=== PATIENT | female | born 1995 | race Two or more races ===

== ENCOUNTER 2019-01-21 01:35 | Emergency (ER) | payer OTHER ==
[~2019-01-21] VITALS: Ht 160 cm; Wt 72.6 kg
== END 2019-01-21 04:42 | disposition home or self-care (01) ==
LOC: ER 01:35
DX: K52.89 Other specified noninfective gastroenteritis and colitis (principal)

== ENCOUNTER 2020-02-02 20:47 | Emergency (ER) | payer OTHER ==
[~2020-02-02] VITALS: Ht 157.5 cm; Wt 72.6 kg
== END 2020-02-02 22:10 | disposition home or self-care (01) ==
LOC: ER 20:47
DX: B37.3 Candidiasis of vulva and vagina (principal)

== ENCOUNTER 2020-09-15 12:58 | Emergency (ER) | payer OTHER ==
[~2020-09-15] VITALS: Ht 157.5 cm; Wt 74.8 kg
== END 2020-09-15 15:39 | disposition home or self-care (01) ==
LOC: ER 12:58
DX: R10.30 Lower abdominal pain, unspecified (principal)

== ENCOUNTER 2021-03-20 18:42 | Emergency (ER) | payer OTHER ==
[~2021-03-20] VITALS: Ht 160 cm; Wt 82.6 kg
[2021-03-20] MEDS ORDERED: PRENATABS RX T1 EACH PO (18:49)
[2021-03-20] MEDS ORDERED: CEFADROXIL500 MG PO (22:46)
== END 2021-03-21 00:19 | disposition home or self-care (01) ==
LOC: ER 18:42
DX: O23.41 Unspecified infection of urinary tract in pregnancy, first trimester (principal); N39.0 Urinary tract infection, site not specified; Z3A.09 9 weeks gestation of pregnancy; A49.3 Mycoplasma infection, unspecified site; Z91.013 Allergy to seafood

== ENCOUNTER 2021-04-08 14:39 | Emergency (ER) | payer OTHER ==
[~2021-04-08] VITALS: Ht 160 cm; Wt 81.6 kg
[~2021-04-08 14:39] MED LIST: CEFADROXIL500 MG PO; PRENATABS RX T1 EACH PO
== END 2021-04-08 18:30 | disposition home or self-care (01) ==
LOC: ER 14:39
DX: O03.1 Delayed or excessive hemorrhage following incomplete spontaneous abortion (principal); Z91.013 Allergy to seafood

== ENCOUNTER 2021-06-24 15:35 | Emergency (ER) | payer OTHER ==
[~2021-06-24] VITALS: Ht 160 cm; Wt 81.6 kg
[2021-06-24] MEDS ORDERED: ZITHROMAX500 MG PO (20:17)
[2021-06-24] MEDS ORDERED: MEDROLPACK PO (20:17)
== END 2021-06-24 20:33 | disposition home or self-care (01) ==
LOC: ER 15:35
DX: J02.9 Acute pharyngitis, unspecified (principal); Z20.822 Contact with and (suspected) exposure to COVID-19; Z91.013 Allergy to seafood

== ENCOUNTER 2025-01-15 19:10 | Emergency (ER) | payer OTHER ==
[~2025-01-15] VITALS: Ht 157.5 cm; Wt 72.6 kg
[~2025-01-15 19:10] MED LIST changes: +MEDROLPACK PO; +ZITHROMAX500 MG PO
[2025-01-15 20:46] VITALS: BP 117/79; O2SAT 99
[2025-01-16 00:54] LABS: BASO % 0.5 % (0.1-1.2); EOS # 0.29 (0.04-0.54); EOS % 3.0 % (0.7-7.0); LYMPH # 3.11 (1.18-3.74); LYMPH % 31.8 % (19.3-53.1); MEAN PLATELET VOLUME 10.90 fl (9.4-12.4); MONO # 0.81 (0.24-0.82); MONO % 8.3 % (4.7-12.5); NEUT # 5.48 (1.56-6.13); NEUT % 56.1 % (34.0-71.1); RED CELL DISTRIBUTION WIDTH 16.3 % (11.6-14.4)
[2025-01-16 00:56] LABS: ERYTHROCYTE SEDIMENTATION RATE 19 mm/hr (0-20)
[2025-01-16 01:15] LABS: ALT/SGPT 30 U/L (12-78); AST/SGOT 25 U/L (15-37); BILIRUBIN TOTAL 0.35 mg/dL (0.3-1.2); BUN CREA RATIO 15 (7.0-25.0); CREATININE SERUM 0.66 mg/dL (0.55-1.02); GFR 107.43; GLOBULINA 4.4 G/DL (2.4-3.5); GLUCOSE FASTING 95 mg/dL (65-100); OSMOLALITY SERUM 278 MOSM/KG (275-295)
[2025-01-16] MEDS ORDERED: CARAFATE1 GM PO (02:56)
== END 2025-01-16 03:01 ==
LOC: ER 19:10
PROVIDERS: Preventive Medicine Public Health & General Preventive Medicine
DX: R13.10 Dysphagia, unspecified (principal); Z91.013 Allergy to seafood